=== PATIENT | female | born 1955 | race Caucasian/White ===

== ENCOUNTER → 2016-10-26 | Outpatient (CLI) | payer BC ==
[~2016-10-26] MED LIST: CIPR-255 PO; OXYC1TAB3 PO; TAMS0.4C38 PO
--- NOTE | 2016-10-26 15:59 | MAMMOGRAPHY REPORT ---
BILATERAL DIGITAL SCREENING MAMMOGRAM TOMOSYNTHESIS WITH CAD: 10/26/2016 CLINICAL HISTORY: Routine screening. TECHNIQUE: Breast tomosynthesis in addition to standard 2D mammography was performed. Current study was also evaluated with a Computer Aided Detection (CAD) system. COMPARISON: Comparison is made to exams dated: 10/22/2015 mammogram, 09/07/2014 mammogram, 09/05/2013 [facility] mogram, 09/01/2012 mammogram, 08/27/2011 mammogram, and 08/14/2010 mammogram - [facility] er. BREAST COMPOSITION: There are scattered areas of fibroglandular density in both breasts. FINDINGS: A linear scar marker overlies the medial left breast. There are a few stable benign-appear ing microcalcifications in the breasts. No new suspicious mass, architectural distortion or cluster of microcalcifications is seen. IMPRESSION: ACR BI-RADS CATEGORY 1: NEGATIVE There is no mammographic evidence of malignancy. A 1 year screening mammogram is recommended. The pa tient will receive written notification of the results. Approximately 10% of breast cancers are not detected with mammography. A negative mammographic report should not delay biopsy if a clinically suggestive mass is present. Josefa Irvin M.D. ay/:10/26/2016 15:33:18 [place] Machine Operator Helper: Adama ANDREW(Darcy)(M), [facility] letter sent: Normal 1/2 BI-RADS Code: ACR BI-RADS Category 1: Negative
== END | disposition home or self-care (01) ==
LOC: C.MAMM 08:24
PROVIDERS: ATTEND Family Medicine
DX: Z12.31 Encounter for screening mammogram for malignant neoplasm of breast (principal)

== ENCOUNTER 2016-11-16 14:28 | Emergency (ER) | payer BC ==
[~2016-11-16] VITALS: Ht 165.1 cm; Wt 100.3 kg
[2016-11-16 14:37] VITALS: TEMP 36.5; Ht 165.1 cm; Wt 100.3 kg
[2016-11-16] MEDS ORDERED: KETOROLAC TROMETHAMINE 30 MG/ML VIAL IV STA (14:46)
[2016-11-16] MEDS ORDERED: ONDANSETRON INJ 2 MG/ML 2 ML VIAL IV STA (14:46)
[2016-11-16] MEDS ORDERED: SODIUM CHLORIDE 0.9% 1000ML 1,000 ML IV STA (14:46)
[2016-11-16 15:10] LABS: BASO % 1.7 %; BASO ABS # 0.19 K/uL (0-0.2); COMPLETE YES; EOS % 2.3 %; HEMATOCRIT 44.4 % (37-47); IG% 0.2 %; LYMPH % 27.9 %; LYMPH ABS # 3.17 K/uL (1.2-3.4); MEAN CELL VOLUME 88.4 fL (80-100); MEAN CORPUSCULAR HEMOGLOBIN 29.3 pg (25-34); MEAN CORPUSCULAR HGB CONC 33.1 g/dl (32-36); MEAN PLATELET VOLUME 10.4 fL (7.4-10.4); MONO % 8.9 %; PLATELET COUNT 363 K/uL (130-400); RED BLOOD COUNT 5.02 M/uL (4.2-5.4); WHITE BLOOD COUNT 11.37 K/uL (4.8-10.8)
[2016-11-16 15:26] LABS: ALT/SGPT 25 U/L (12-78); BLOOD UREA NITROGEN 19 mg/dl (7-18); BUN/CREATININE RATIO 19.6 (10-20); CALCIUM 9.6 mg/dl (8.5-10.1); CARBON DIOXIDE 29 mmol/L (21-32); CHLORIDE 105 mmol/L (98-107); CREATININE 0.96 mg/dl (0.60-1.20); GLUCOSE 114 mg/dl (70-99); POTASSIUM 3.7 mmol/L (3.5-5.1); SODIUM 141 mmol/L (136-145)
[2016-11-16 15:29] LABS: ALKALINE PHOSPHATASE 95 U/L (45-117); AST/SGOT 16 U/L (15-37)
--- NOTE | 2016-11-16 15:35 | DIAGNOSTIC IMAGING REPORT ---
ABD/PELVIS WITHOUT FOR STONE CT DOSE: 1042.50 mGycm HISTORY: Flank pain left flank eval for stone TECHNIQUE: Multiaxial CT images of the abdomen and pelvis were performed without the use of intravenous and oral contrast according to the standard department stone protocol. COMPARISON STUDY: 01/15/2009 FINDINGS: The lung bases are clear. Configuration of liver spleen and pancreas are unremarkable. Gallbladder is negative for distention. Right kidney is negative for calcification or hydronephrosis. There is a 2 mm nonobstructing calcification lower pole left kidney. There is mild left hydroureteronephrosis. At the distal left ureter is a 3.5 x 3.0 mm obstructing calculus. This is several centimeters from the left ureterovesical junction. Bladder is midline. Bowel pattern overall is nonobstructive. There are findings of scattered colonic diverticuli. There is no evidence for acute diverticulitis. IMPRESSION: 1. 3.5 x 3.0 mm obstructing calculus distal left ureter. 2. Mild left hydroureteronephrosis. 3. Small nonobstructing left renal calcification. The above report was generated using voice recognition software. It may contain grammatical, syntax or spelling errors. Electronically signed by: Daniel Page M.D. 11/16/2016 3:33 PM Dictated Date/Time: 11/16/2016 3:31 PM
[2016-11-16 15:45] LABS: URINE APPEARANCE TURBID (CLEAR); URINE BILIRUBIN NEG (NEG); URINE COLOR YELLOW; URINE EPITHELIAL CELL AUTO >30 /lpf (0-5); URINE NITRITE NEG (NEG); URINE SPECIFIC GRAVITY 1.026 (1.000-1.030); UROBILINOGEN NEG (NEG)
[2016-11-16 15:54] LABS: MANUAL MICROSCOPIC REQUIRED? NO; REVIEW REQ? NO
[2016-11-16 15:55] VITALS: BP 149/95; PULSE 72; O2SAT 98
[2016-11-16] MEDS ORDERED: CIPROFLOXACIN 500 MG TAB PO STA (15:57)
[2016-11-16] MEDS ORDERED: TAMSULOSIN HCL 0.4 MG CAP PO ONE (16:00)
[2016-11-16] MEDS ORDERED: OXYC1TAB3 PO (16:07)
[2016-11-16] MEDS ORDERED: TAMS0.4C38 PO (16:07)
[2016-11-16] MEDS ORDERED: CIPR-255 PO (16:16)
--- NOTE | 2016-11-16 16:40 | EMERGENCY ROOM VISIT NOTE ---
History Report prepared by Gallito: Florentin Doshi Under the Supervision of: Dr. Gigi Figueroa M.D. First contact with patient: 14:42 Chief Complaint: URINARY SYMPTOMS Stated Complaint: UTI OR KIDNEY STONE History of Present Illness The patient is a 61 year old female who presents to the Emergency Room with complaints of worsening, left lower abdominal and flank pain beginning a couple hours ago. The patient states that she believes she is passing a kidney stone. She reports that she has had a history of kidney stones last year. The patient notes that she had x-rays performed and was told that she had multiple, and they are able to move. She states that when her discomfort began, she felt like she needed to urinate, but she could not. The patient reports that she was had the chills, vomited, and soft stools. She denies having a fever. Source of History: patient Onset: couple hours ago Position: abdomen (LLQ) Symptom Intensity: moderate Timing: worsening Associated Symptoms: + chills, + vomiting, + diarrhea (soft stools), + urinary symptoms, No fevers Review of Systems See HPI for pertinent positives & negatives. A total of 10 systems reviewed and were otherwise negative. Past Medical & Surgical Medical Problems: (1) Kidney stones Family History Patient reports no known family medical history. Social History Smoking Status: Unknown if Ever Smoked Housing Status: lives with significant other Current/Historical Medications Scheduled Ciprofloxacin Hcl (Cipro), 500 MG PO BID Tamsulosin Hcl (Flomax), 0.4 MG PO DAILY Scheduled PRN Oxycodone Ir (Roxicodone Ir), 5 MG PO Q4H PRN for Pain Allergies Coded Allergies: No Known Allergies (Unverified , OTHER, 11/16/16) Physical Exam Vital Signs Date Time Temp Pulse Resp B/P (MAP) Pulse Ox O2 Delivery O2 Flow Rate FiO2 11/16/16 15:55 72 18 149/95 98 Room Air 11/16/16 14:37 36.5 69 20 145/90 97 Room Air Physical Exam Constitutional: Vital signs reviewed. Eyes: Pupils are equal round reactive to light. Conjunctiva are noninjected. ENT: Pharynx is clear without erythema or exudate. Mucous membranes are moist. Neck supple without meningeal signs. Respiratory: Clear to auscultation bilaterally. Breath sounds are equal bilaterally. Cardiovascular: Regular rate and rhythm. No rubs or gallops. GI: Soft, nondistended and nontender. Bowel sounds are present. Musculoskeletal: No peripheral edema. No CVAT. Integumentary: No cyanosis. Neurological: The patient is awake and alert. No focal deficits. Psychiatric: Normal affect. Medical Decision & Procedures ER Provider Diagnostic Interpretation: CT results as stated below per my review and radiologist interpretation. ABD/PELVIS WITHOUT FOR STONE CT DOSE: 1042.50 mGycm HISTORY: Flank pain left flank eval for stone TECHNIQUE: Multiaxial CT images of the abdomen and pelvis were performed without the use of intravenous and oral contrast according to the standard department stone protocol. COMPARISON STUDY: 01/15/2009 FINDINGS: The lung bases are clear. Configuration of liver spleen and pancreas are unremarkable. Gallbladder is negative for distention. Right kidney is negative for calcification or hydronephrosis. There is a 2 mm nonobstructing calcification lower pole left kidney. There is mild left hydroureteronephrosis. At the distal left ureter is a 3.5 x 3.0 mm obstructing calculus. This is several centimeters from the left ureterovesical junction. Bladder is midline. Bowel pattern overall is nonobstructive. There are findings of scattered colonic diverticuli. There is no evidence for acute diverticulitis. IMPRESSION: 1. 3.5 x 3.0 mm obstructing calculus distal left ureter. 2. Mild left hydroureteronephrosis. 3. Small nonobstructing left renal calcification. The above report was generated using voice recognition software. It may contain grammatical, syntax or spelling errors. Electronically signed by: Daniel Page M.D. 11/16/2016 3:33 PM Dictated Date/Time: 11/16/2016 3:31 PM Laboratory Results 11/16/16 14:55 Red Blood Count 5.02, Mean Corpuscular Volume 88.4, Mean Corpuscular Hemoglobin 29.3, Mean Corpuscular Hemoglobin Concent 33.1, Mean Platelet Volume 10.4, Neutrophils (%) (Auto) 59.0, Lymphocytes (%) (Auto) 27.9, Monocytes (%) (Auto) 8.9, Eosinophils (%) (Auto) 2.3, Basophils (%) (Auto) 1.7, Neutrophils # (Auto) 6.72, Lymphocytes # (Auto) 3.17, Monocytes # (Auto) 1.01, Eosinophils # (Auto) 0.26, Basophils # (Auto) 0.19 11/16/16 14:55 Test 11/16/16 14:55 White Blood Count 11.37 K/uL (4.8-10.8) Red Blood Count 5.02 M/uL (4.2-5.4) Hemoglobin 14.7 g/dL (12.0-16.0) Hematocrit 44.4 % (37-47) Mean Corpuscular Volume 88.4 fL (80-100) Mean Corpuscular Hemoglobin 29.3 pg (25-34) Mean Corpuscular Hemoglobin Concent 33.1 g/dl (32-36) Platelet Count 363 K/uL (130-400) Mean Platelet Volume 10.4 fL (7.4-10.4) Neutrophils (%) (Auto) 59.0 % Lymphocytes (%) (Auto) 27.9 % Monocytes (%) (Auto) 8.9 % Eosinophils (%) (Auto) 2.3 % Basophils (%) (Auto) 1.7 % Neutrophils # (Auto) 6.72 K/uL (1.4-6.5) Lymphocytes # (Auto) 3.17 K/uL (1.2-3.4) Monocytes # (Auto) 1.01 K/uL (0.11-0.59) Eosinophils # (Auto) 0.26 K/uL (0-0.5) Basophils # (Auto) 0.19 K/uL (0-0.2) RDW Standard Deviation 44.2 fL (36.4-46.3) RDW Coefficient of Variation 13.6 % (11.5-14.5) Immature Granulocyte % (Auto) 0.2 % Immature Granulocyte # (Auto) 0.02 K/uL (0.00-0.02) Urine Color YELLOW Urine Appearance TURBID (CLEAR) Urine pH 5.0 (4.5-7.5) Urine Specific [place] 1.026 (1.000-1.030) Urine Protein NEG (NEG) Urine Glucose (UA) NEG (NEG) Urine Ketones NEG (NEG) Urine Occult Blood 1+ (NEG) Urine Nitrite NEG (NEG) Urine Bilirubin NEG (NEG) Urine Urobilinogen NEG (NEG) Urine Leukocyte Esterase MODERATE (NEG) Urine WBC (Auto) 10-30 /hpf (0-5) Urine RBC (Auto) 0-4 /hpf (0-4) Urine Hyaline Casts (Auto) 5-10 /lpf (0-5) Urine Epithelial Cells (Auto) >30 /lpf (0-5) Urine Bacteria (Auto) 4+ (NEG) Anion Gap 7.0 mmol/L (3-11) Est Creatinine Clear Calc Drug Dose 72.2 ml/min Estimated GFR () 74.0 Estimated GFR (Non- 63.8 BUN/Creatinine Ratio 19.6 (10-20) Calcium Level 9.6 mg/dl (8.5-10.1) Total Bilirubin 0.2 mg/dl (0.2-1) Direct Bilirubin < 0.1 mg/dl (0-0.2) Aspartate Amino Transf (AST/SGOT) 16 U/L (15-37) Alanine Aminotransferase (ALT/SGPT) 25 U/L (12-78) Alkaline Phosphatase 95 U/L (45-117) Total Protein 8.3 gm/dl (6.4-8.2) Albumin 4.0 gm/dl (3.4-5.0) Lipase 147 U/L (73-393) Laboratory results as reviewed by me. Medications Administered Medications (Trade) Dose Ordered Sig/Eddy Route Start Time Stop Time Status Last Admin Dose Admin Sodium Chloride 1,000 ml @ 999 mls/hr Q1H1M STAT IV 11/16/16 14:46 11/16/16 15:46 DC 11/16/16 15:02 999 MLS/HR Ondansetron HCl (Zofran Inj) 4 mg NOW STAT IV 11/16/16 14:46 11/16/16 14:48 DC 11/16/16 15:02 4 MG Ketorolac Tromethamine (Toradol Inj) 10 mg NOW STAT IV 11/16/16 14:46 11/16/16 14:49 DC 11/16/16 15:02 10 MG Tamsulosin HCl (Flomax Cap) 0.4 mg NOW ONCE PO 11/16/16 16:00 11/16/16 16:01 DC 11/16/16 16:04 0.4 MG Ciprofloxacin (Cipro Tab) 500 mg NOW STAT PO 11/16/16 15:57 11/16/16 15:59 DC 11/16/16 16:04 500 MG ED Course 1443: The patient was evaluated in room C04. A complete history and physical exam was performed. 1446: Ordered Toradol Inj 10 mg IV, Zofran Inj 4 mg IV, Sodium Chloride 1000 ml @ 999 mls/hr IV 1546: I reevaluated the patient, and she is feeling better. 1557: Ordered Cipro Tab 500 mg PO 1600: Ordered Flomax Cap 0.4 mg PO 1601: I discussed the patient's exam findings and test results. She verbalized agreement of the treatment plan and discharge instructions. Medical Decision This is a 61-year-old female who presents with left-sided flank pain. Differential diagnosis includes ureterolithiasis, UTI, hydronephrosis, strain, diverticulitis. I did perform a limited focused review of portions of the patient's old chart on the electronic medical record. The patient has had no recent pertinent visits to this hospital. Medication Reconciliation: I attest that I have personally reviewed the patient' s current medication list. Blood Pressure Screening: Patient was found to have an elevated blood pressure and was referred to their primary doctor for recheck and further treatment. I did evaluate the patient as noted above. The patient is presenting with left- sided flank pain starting today. She has a prior history of kidney stones. IV access was established. I did treat patient with normal saline IV. She was also given Toradol IV and Zofran IV. I did order and personally review the patient's urinalysis as described above. A urine culture was sent. The patient was treated with Cipro. I did order and review the patient's blood work as noted in the electronic medical record. I did order a CT of the abdomen and pelvis. I did review the images myself as well as the radiology report as described above. The patient has a 3.5 mm left distal ureteral stone with hydronephrosis. I did reassess patient. The patient's pain is resolved. She is feeling much better and has no complaints currently. I did discuss the test results with the patient. The patient was treated with Flomax. She was referred to Dr. Mchugh of urology. She was given a prescription for Flomax, Cipro and oxycodone for breakthrough pain. She was given precautions regarding these medications. She was given return instructions as outlined below. [place] Drug Monitoring Program Search Results: patient reviewed within database, no issues identified Drug Monitoring Findings: No matching patients. Impression Primary Impression: Renal colic Additional Impression: UTI (urinary tract infection) Scribe Attestation The scribe's documentation has been prepared under my direct and personally reviewed by me in its entirety. I confirm that the note above accurately reflects all work, treatment, procedures, and medical decision making performed by me. Departure Information Dispostion Home / Self-Care Prescriptions Ciprofloxacin Hcl (CIPRO) 500 Mg Tab 500 MG PO BID, #14 TAB Prov: Gigi Figueroa M.D. 11/16/16 Tamsulosin Hcl (FLOMAX) 0.4 Mg Cap 0.4 MG PO DAILY for 7 Days, #7 CAP Prov: Gigi Figueroa M.D. 11/16/16 Oxycodone Ir (Roxicodone Ir) 5 Mg Tab 5 MG PO Q4H Y for Pain, #20 TAB Prov: Gigi Figueroa M.D. 11/16/16 Referrals Jeaine OcasioD.OShanae (PCP) Al Mchugh MD Forms HOME CARE DOCUMENTATION FORM, IMPORTANT VISIT INFORMATION Patient Instructions ED UTI Cystitis Female, Kidney Stones Expectant Therapy, [facility] Additional Instructions You have been examined and treated today on an emergency basis only. This is not a substitute for, or an effort to provide, complete comprehensive medical care. It is impossible to recognize and treat all injuries or illnesses in a single emergency department visit. It is therefore important that you follow up closely with your physician or Dr. Mchugh of urology. Call as soon as possible for an appointment. Return for worsening symptoms or if you develop fever or any other concerning symptoms. Start Flomax tomorrow. Stop Flomax once you pass your kidney stone. Problem Qualifiers Additional Impression: UTI (urinary tract infection) Urinary tract infection type: site unspecified Hematuria presence: with hematuria Qualified Codes: N39.0 - Urinary tract infection, site not specified ; R31.9 - Hematuria, unspecified
== END 2016-11-16 16:31 | disposition home or self-care (01) ==
LOC: C.EDB 14:29 → C.EDC 16:31
DX: N20.2 Calculus of kidney with calculus of ureter (principal); N13.30 Unspecified hydronephrosis; R10.9 Unspecified abdominal pain; N39.0 Urinary tract infection, site not specified

== ENCOUNTER → 2017-01-22 | Outpatient (CLI) | payer BC ==
[~2017-01-22] MED LIST changes: -TAMS0.4C38 PO
--- NOTE | 2017-01-22 09:01 | DIAGNOSTIC IMAGING REPORT ---
KUB CLINICAL HISTORY: N20.0 [id number] COMPARISON STUDY: 01/28/2016 , CT scan dated 11/16/2016 FINDINGS: There is no pathologic bowel dilatation. There are no calcifications suspicious for renal calculi. There are tiny pelvic basin calcifications. These are nonspecific and the absence of pain, likely represent phleboliths. IMPRESSION: No renal calculi identified on conventional radiographic imaging. Electronically signed by: Joe Kang M.D. 01/22/2017 8:59 AM Dictated Date/Time: 01/22/2017 8:57 AM
== END | disposition home or self-care (01) ==
LOC: C.RADBC 08:45
PROVIDERS: ATTEND Nurse Practitioner Family
DX: N20.0 Calculus of kidney (principal)